=== PATIENT | female | born 1985 | race Caucasian/White ===

== ENCOUNTER → 2021-11-18 08:48 | Outpatient (CLI) | payer OTHER, SELFPAY ==
--- NOTE | ~2021-11-18 | MR_ITS ---
EXAMINATION: MR shoulder LT wo con DATE: 11/18/2021 09:39 INDICATION: Pain in left shoulder. TECHNIQUE: Magnetic resonance imaging (MRI) of the left shoulder was performed without intravenous co ntrast. Sequences included axial PD-weighted FS FSE, coronal oblique PD-weighted FS FSE and T2-weight ed FS FSE, and sagittal oblique T2-weighted FS FSE and T1-weighted FSE. COMPARISON: None. FINDINGS: Coracoacromial arch: The acromion undersurface is curved in morphology (type II). There is mild acromioclavicular joint os teoarthritis. There is moderate subacromial/subdeltoid bursitis. Rotator cuff: There is moderate supraspinatus and infraspinatus tendinopathy. Teres minor tendon is normal. There i s mild subscapularis tendinopathy. No tear. There is no asymmetric fatty atrophy of the rotator cuff muscle bellies. Biceps tendon and glenoid labrum: Biceps tendon is in bicipital groove. Intra-articular biceps tendon is normal. The glenoid labrum is normal. Fluid: There is a small glenohumeral joint effusion. Bones/cartilage: Glenoid cartilage is normal. Humeral head cartilage is normal. IMPRESSION: 1. Moderate rotator cuff tendinopathy. No tear. 2. Moderate subacromial/subdeltoid bursitis. 3. Small glenohumeral joint effusion. Reviewed, dictated and finalized at location A.
--- NOTE | ~2021-11-18 | MR_ITS ---
EXAMINATION: MR cervical spine wo con DATE: 11/18/2021 09:45 INDICATION: Cervical radiculopathy. TECHNIQUE: Magnetic resonance imaging (MRI) of the cervical spine was performed without intravenous c ontrast. Sequences included sagittal T2-weighted FSE, sagittal T2-weighted FS FSE, sagittal T1-weight ed FSE, axial MERGE, and axial T2-weighted FSE. COMPARISON: None FINDINGS: There is 4 degrees dextrocurvature of cervical thoracic spine. There is mild kyphosis of ce rvical spine. Vertebral body heights are normal. There is mildly decreased disc height at C5-C6. The spinal cord signal intensity is normal. The following disc levels are specifically discussed: C2-C3: The disc does not extend beyond the endplate margin. There is no uncovertebral joint osteoarth ritis. There is mild bilateral facet joint osteoarthritis. There is no neural foraminal stenosis. The re is no central canal stenosis. C3-C4: There is a central extrusion. There is no uncovertebral joint osteoarthritis. There is mild ri ght facet joint osteoarthritis. There is no neural foraminal stenosis. There is mild central canal st enosis. C4-C5: There is a central extrusion. There is no uncovertebral joint osteoarthritis. There is no face t joint osteoarthritis. There is no neural foraminal stenosis. There is mild central canal stenosis. C5-C6: The disc is bulging. There is mild bilateral uncovertebral joint osteoarthritis. There is no f acet joint osteoarthritis. There is no neural foraminal stenosis. There is mild central canal stenosi s with ventral indentation of the spinal cord. C6-C7: The disc is bulging. There is no uncovertebral joint osteoarthritis. There is no facet joint o steoarthritis. There is no neural foraminal stenosis. There is mild central canal stenosis. C7-T1: The disc does not extend beyond the endplate margin. There is no uncovertebral joint osteoarth ritis. There is mild bilateral facet joint osteoarthritis. There is no neural foraminal stenosis. The re is no central canal stenosis. IMPRESSION: 1. Mild cervical spondylosis. Reviewed, dictated and finalized at location A.
== END ==
PROVIDERS: Visit Provider Physician Assistant Medical
DX: M25.412 Effusion, left shoulder (principal); M75.52 Bursitis of left shoulder; M47.22 Other spondylosis with radiculopathy, cervical region
CPT/HCPCS: 72141; 73221

== ENCOUNTER 2022-06-27 15:31 | Emergency (ER) | payer MEDICAID, SELFPAY ==
[2022-06-27 15:53] VITALS: BP 128/71; PULSE 84; RESP 18; TEMP 36.9; O2SAT 100
--- NOTE | 2022-06-27 16:28 | ED.URI ---
HPI - URI/Sore Throat General Chief Complaint: Upper Respiratory Infection Stated Complaint: Lt Ear Irritation Time Seen by Provider: 06/27/22 16:18 History of Present Illness HPI Narrative: 36 y/o female presented for c/o left ear pain, sinus drainage and sore throat for 2 days. Denies tinnitus, dizziness, cough, shortness of breath, wheezing, nausea vomiting, diarrhea, fevers or chills. Endorses children are sick. States they tested negative at the sales service professional's last week, dx with 'virus.' Takes daily Zyrtec and Flonase. Related Data Home Medications Medication Instructions Recorded Confirmed drospirenone 3 mg-estetrol 14.2 mg 1 tablet PO DAILY 06/27/22 06/27/22 (28) tablet (Nextstellis) Allergies Allergy/AdvReac Type Severity Reaction Status Date / Time azithromycin AdvReac Mild Hives Verified 06/27/22 16:17 meloxicam AdvReac Mild Hot Flashes Verified 06/27/22 16:17 Review of Systems Review of Systems: CONSTITUTIONAL: Denies body aches, fever, chills, or sweats. EYES: Denies visual changes, redness, or discharge. ENT: reports rhinorrhea, congestion, otalgia. CARDIOVASCULAR: Denies chest pain, palpitations, or edema. RESPIRATORY: Denies dyspnea. GASTROINTESTINAL: Denies abdominal pain, nausea, vomiting, or diarrhea. MUSCULOSKELETAL: Denies back pain, joint pain, or myalgia. 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 EYES: conjunctivae clear ENT: Mucous membranes moist. Right TM pearly chaudhari with normal light reflex; Left TM mild erythema with clear effusion, nontender; no tragal tenderness. Oropharynx erythematous without lesions. Tonsils absent. NECK: Supple. No lymphadenopathy CHEST: Clear to auscultation, breath sounds equal. HEART: Regular rate and rhythm. No murmur heard. SKIN: Warm, dry, no rash. NEURO: Alert and oriented x3. Course Course Emergency Course: Patient is aware of diagnosis, understands and agrees to treatment plan. Anticipatory guidance given. Patient agrees to follow-up as directed and is aware of reasons to seek care at the emergency department. Portions of this record may have been created with voice recognition software Level of Care: Express Care Visit Vital Signs Vital signs: Vital Signs Temperature 98.5 F 06/27/22 15:53 Pulse Rate 84 06/27/22 15:53 Respiratory Rate 18 06/27/22 15:53 Blood Pressure 128/71 06/27/22 15:53 Pulse Oximetry 100 06/27/22 15:53 Oxygen Delivery Room Air 06/27/22 15:53 Temperature 98.5 F 06/27/22 15:53 Pulse Rate 84 06/27/22 15:53 Respiratory Rate 18 06/27/22 15:53 Blood Pressure 128/71 06/27/22 15:53 Pulse Oximetry 100 06/27/22 15:53 Oxygen Delivery Room Air 06/27/22 15:53 MDM - URI/Sore Throat MDM Narrative Medical decision making narrative: Advise supportive treatments for serous OM. She will not have close f/u with pcp, abx prescribed if sx worsen. Patient is appropriate for outpatient treatment and follow-up. Differential Diagnosis Differential diagnosis: Likely upper respiratory infection, viral infection and pharyngitis Discharge Plan Discharge Clinical Impression: Otitis media Prudencio
== END 2022-06-27 17:00 | disposition home or self-care (01) ==
PROVIDERS: Emergency Provider Nurse Practitioner Family
DX: H65.02 Acute serous otitis media, left ear (principal); E03.9 Hypothyroidism, unspecified
CPT/HCPCS: 99213; G0463